=== PATIENT | male | born 1980 | race Caucasian/White ===

== ENCOUNTER 2021-08-02 10:40 | Emergency (ER) | payer BC ==
--- NOTE | 2021-08-02 11:41 | EDM.PDOC ---
ED HPI GENERAL MEDICAL PROBLEM - General Chief Complaint: Chest Pain Stated Complaint: EAR NECK AND CHEST PAIN Time Seen by Provider: 08/02/21 11:05 Source of Information: Reports: Patient, RN Notes Reviewed History Limitations: Reports: No Limitations - History of Present Illness INITIAL COMMENTS - FREE TEXT/NARRATIVE: Patient is a 40-year-old male who presents to the ER for evaluation of a few different symptoms. Patient notes that he had to go get a urine drug screen for work this morning, when he got back into his truck, he developed some slight chest discomfort, and some tingling sensations that radiated up into his left ear. Patient states that he had some slight for the brain fog with this. He made it similar to how when you are falling asleep, or "zoning out" but this was a sensation that he had. He felt maybe a little lightheadedness/dizziness with this. No nausea/vomiting/diarrhea, no cough or shortness of breath, or any fevers or chills that he has been having. Patient did have COVID-19 last year, and did obtain his [employer] Covid vaccines this year as well. Patient states that he has not started any new medications, supplements or otherwise. States that he felt fine up until these symptoms started happening in the truck at about 10:30 AM. 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 Left Upper Anterior Chest Pain Score (Numeric/FACES): 2 - Related Data Allergies Allergy/AdvReac Type Severity Reaction Status Date / Time No Known Allergies Allergy Verified 08/22/18 12:17 Home Meds: Home Meds Acetaminophen [Tylenol] 650 mg PO Q4H PRN 08/22/18 [History] Past Medical History HEENT History: Reports: Impaired Vision, Other (See Below) Other HEENT History: wears glasses Respiratory History: Reports: Asthma Gastrointestinal History: Reports: GERD Musculoskeletal History: Reports: Other (See Below) Other Musculoskeletal History: lateral meniscus tear, right knee pain - Infectious Disease History Infectious Disease History: Reports: Chicken Pox, Influenza, Novel Coronavirus (2019) Social & Family History - Family History Family Medical History: No Pertinent Family History - Caffeine Use Caffeine Use: Reports: Coffee ED ROS GENERAL - Review of Systems Review Of Systems: Comprehensive ROS is negative, except as noted in HPI. ED EXAM, GENERAL - Physical Exam Exam: See Below Exam Limited By: No Limitations General Appearance: Alert, WD/WN, No Apparent Distress Eye Exam: Bilateral Eye: EOMI, Normal Inspection, PERRL Ears: Normal External Exam, Normal Canal, Hearing Grossly Normal, Normal TMs Throat/Mouth: Normal Inspection, Normal Lips, Normal Teeth, Normal Gums, Normal Oropharynx, Normal Voice, No Airway Compromise Neck: Normal Inspection, Supple, Non-Tender, Full Range of Motion Respiratory/Chest: No Respiratory Distress, Lungs Clear, Normal Breath Sounds, No Accessory Muscle Use, Chest Non-Tender Cardiovascular: Normal Peripheral Pulses, Regular Rate, Rhythm Peripheral Pulses: 2+: Radial (L), Radial (R) GI/Abdominal: Normal Bowel Sounds, Soft, Non-Tender, No Distention, No Mass Extremities: Normal Inspection, Normal Capillary Refill Neurological: Alert, Oriented, Normal Cognition, No Motor/Sensory Deficits Psychiatric: Normal Affect, Normal Mood Skin Exam: Warm, Dry, Intact, Normal Color, No Rash Course - Vital Signs Last Recorded V/S: Last Vital Signs Temp 98.2 F 08/02/21 11:06 Pulse 73 08/02/21 11:06 Resp 20 08/02/21 11:06 BP 140/96 H 08/02/21 11:06 Pulse Ox 95 08/02/21 11:06 - Orders/Labs/Meds Labs: Laboratory Tests 08/02/21 08/02/21 Range/Units 11:53 11:53 WBC 4.41 (4.23-9.07) K/mm3 RBC 5.07 (4.63-6.08) M/mm3 Hgb 14.8 (13.7-17.5) gm/dl Hct 43.2 (40.1-51.0) % MCV 85.2 (79.0-92.2) fl MCH 29.2 (25.7-32.2) pg MCHC 34.3 (32.2-35.5) g/dl RDW Std Deviation 41.8 (35.1-43.9) fL Plt Count 231 (163-337) K/mm3 MPV 10.1 (9.4-12.3) fl Neut % (Auto) 56.0 (34.0-67.9) % Lymph % (Auto) 31.5 (21.8-53.1) % [place]fer[place] % (Auto) 8.2 (5.3-12.2) % Eos % (Auto) 3.2 (0.8-7.0) Baso % (Auto) 0.9 (0.1-1.2) % Neut # (Auto) 2.47 (1.78-5.38) K/mm3 Lymph # (Auto) 1.39 (1.32-3.57) K/mm3 [place]ferro # (Auto) 0.36 (0.30-0.82) K/mm3 Eos # (Auto) 0.14 (0.04-0.54) K/mm3 Baso # (Auto) 0.04 (0.01-0.08) K/mm3 Sodium 139 (136-145) mEq/L Potassium 3.7 (3.5-5.1) mEq/L Chloride 104 (98-107) mEq/L Carbon Dioxide 25 (21-32) mEq/L Anion Gap 13.7 (5-15) BUN 12 (7-18) mg/dL Creatinine 0.9 (0.7-1.3) mg/dL Est Cr Clr Drug Dosing 118.56 mL/min Estimated GFR (MDRD) > 60 (>60) mL/min BUN/Creatinine Ratio 13.3 L (14-18) Glucose 101 H (70-99) mg/dL Calcium 8.7 (8.5-10.1) mg/dL Total Bilirubin 0.6 (0.2-1.0) mg/dL AST 32 (15-37) U/L ALT 65 H (16-63) U/L Alkaline Phosphatase 66 (46-116) U/L Total Protein 7.3 (6.4-8.2) g/dl Albumin 3.7 (3.4-5.0) g/dl Globulin 3.6 gm/dL Albumin/Globulin Ratio 1.0 (1-2) Meds: Medications Discontinued Medications Generic Name Dose Route Start Last Admin Trade Name Freq PRN Reason Stop Dose Admin Meclizine HCl 25 mg 08/02/21 11:31 08/02/21 11:38 Meclizine 25 Mg Tab.Chew PO 08/02/21 11:32 25 mg ONETIME ONE Administration - Re-Assessments/Exams Free Text/Narrative Re-Assessment/Exam: 08/02/21 11:44 Patient presents to the ER for his general symptoms, we will go ahead and get some basic labs, give him 1 dose of meclizine to see if this helps relieve some of the symptoms. 08/02/21 12:40 Labs demonstrate no focal abnormalities. We will reassess patient at bedside, to see if the meclizine has helped. 08/02/21 12:49 And states he is feeling somewhat better with the meclizine. We will go ahead and discharge him home at this time and recommendations. Departure - Departure Time of Disposition: 12:49 Disposition: Home, Self-Care 01 Condition: Good Clinical Impression: Vertigo - Discharge Information *PRESCRIPTION DRUG MONITORING PROGRAM REVIEWED*: No *COPY OF PRESCRIPTION DRUG MONITORING REPORT IN PATIENT NIKKIE: No Instructions: Vertigo, [id number] Referrals: PCP,None [Primary Care Provider] - Forms: ED Department Discharge Additional Instructions: You were seen in the ER today for your generalized dizziness, and other generalized symptoms. Your clinical course is consistent with vertigo in nature. Which may be easily treatable with an [id number] medication called meclizine. You were given 1 dose of this medication in the ER today. This seemed to help relieve some of your symptoms and you are able to walk and feel better when you were standing upright. This medication is clinically marketed as Antivert, or Bonine, and is found near the medications like Benadryl or other medications for motion sickness. You may take per manufacture label instructions for ongoing vertigo management. Please try to increase your oral fluid intake over the next few days, and keep yourself generally healthy. Laboratory evaluation was unremarkable at today's visit. If symptoms do not seem to be getting much better in a few days time, there are some chiropractors in the area I believe that do some vertigo adjustments, or you can be referred to physical therapy for ongoing vertigo management but you will need to be reassessed by another care provider for that. If you do not have a primary care provider already, I recommend that you follow- up with a provider in our clinic, any family practice provider would be able to provide you with the services. Our clinic telephone number [phone], please call in the morning to obtain an appointment with the provider, for follow-up of your symptoms that prompted your ER visit today. Do not hesitate to return to the ER at any time if symptoms change or worsen. Sepsis Event Note (ED) - Focused Exam Vital Signs: Vital Signs Temp Pulse Resp BP Pulse Ox 08/02/21 11:06 98.2 F 73 20 140/96 H 95
== END 2021-08-02 13:25 | disposition home or self-care (01) ==
LOC: JD.ED 10:40
DX: R42 Dizziness and giddiness (principal)
CPT/HCPCS: 36415; 80053; 85025; 99284; A9270

== ENCOUNTER 2024-01-01 10:00 | Day surgery (SDC) | payer BC ==
[2024-01-01] MEDS: Lactated Ringers 1,000 ML IV SCH (09:45)
[2024-01-01] MEDS: oxyCODONE ER 10 MG TAB.ER PO ONE (09:55)
[2024-01-01] MEDS: Pregabalin 25 MG Cap PO ONE (09:55)
[2024-01-01] MEDS: Acetaminophen 325 MG Tab PO ONE (09:55)
[~2024-01-01 10:00] MED LIST: Sodium Chloride 0.9% 10 ML Syringe FLUSH PRN; Sodium Chloride 0.9% 10 ML Syringe FLUSH SCH; ceFAZolin 2 GM Vial ONE
[2024-01-01] MEDS ORDERED: Propofol 200 MG/20 ML SDV ONE ×4 (10:16→13:58)
[2024-01-01] MEDS ORDERED: Lidocaine 1% 4 ML ONE (12:18)
[2024-01-01] MEDS ORDERED: Ondansetron 4 MG/2 ML SDV ONE (12:19)
[2024-01-01] MEDS ORDERED: EPINEPHrine 1 MG/ML SDV ONE (12:23)
[2024-01-01] MEDS ORDERED: Dexamethasone 4 MG/ML 5 ML MDV ONE (12:23)
[2024-01-01] MEDS ORDERED: Ropivacaine 0.5% 5 MG/ML 30 ML SDV ONE (12:23)
[2024-01-01] MEDS ORDERED: dexmedeTOMIDine HCl 200 MCG/2 ML SDV ONE (12:23)
[2024-01-01] MEDS ORDERED: Midazolam 1 MG/ML 2 ML SDV ONE (12:50)
[2024-01-01] MEDS ORDERED: fentaNYL 100 MCG/2 ML SDV ONE (13:00)
[2024-01-01] MEDS ORDERED: ePHEDrine 50 MG/ML SDV ONE (13:21)
[2024-01-01] MEDS: Vancomycin 1 GM SDV ONE (13:30)
[2024-01-01] MEDS: Morphine 8 MG, EPINEPHrine 0.3 MG, Cefuroxime 750 MG, Ketorolac 30 MG, Sodium Chloride ... PRN (13:30)
[2024-01-01] MEDS: Tranexamic Acid 1,000 MG/10 ML Vial ONE (13:30)
[2024-01-01] MEDS ORDERED: Phenylephrine 1% 10 MG/ML SDV ONE (13:30)
[2024-01-01] MEDS ORDERED: Lactated Ringers 1,000 ML IV ONE (14:00)
== END 2024-01-01 17:37 | disposition home or self-care (01) ==
LOC: JD.SDS 10:00
PROVIDERS: ATTEND Orthopaedic Surgery
DX: M17.11 Unilateral primary osteoarthritis, right knee (principal); J30.9 Allergic rhinitis, unspecified; G89.29 Other chronic pain; M93.90 Osteochondropathy, unspecified of unspecified site; M25.561 Pain in right knee; Z79.899 Other long term (current) drug therapy
CPT/HCPCS: 0055T; 27447; 64447; 73560; 97116; 97161; A9270; C1713; C1776; J0171; J0690; J0697; J1100; J1885; J2250; J2270; J2371; J2405; J2704; J2795; J3010; J3370; J7030; J7120; 01402; J3490